=== PATIENT | male | born 1965 | race Two or more races ===

== ENCOUNTER 2021-03-29 06:48 | Inpatient (IN) | payer MEDICAID ==
[~2021-03-29] VITALS: Ht 152.4 cm; Wt 95.2 kg
[2021-03-29 07:33] LABS: BASOPHILS % (AUTO) 0.4 % (0.0-2.0); EOSINOPHILS % (AUTO) 0.3 % (1.0-6.0); HEMATOCRIT 48.1 % (41-53); HEMOGLOBIN 15.9 g/dL (13.5-17.5); LYMPHOCYTES # (AUTO) 1.5 K/uL (1.0-4.8); LYMPHOCYTES % (AUTO) 11.1 % (22.0-44.0); MEAN CORPUSCULAR HEMOGLOBIN 31.1 pg (26.0-34.0); MEAN CORPUSCULAR HGB CONC 33.1 G/dL (31.0-37.0); MEAN CORPUSCULAR VOLUME 94 fL (80-100); MONOCYTES # (AUTO) 1.2 K/uL (0.1-1.0); MONOCYTES % (AUTO) 8.7 % (2.0-9.0); NEUTROPHILS # (AUTO) 10.5 K/uL (1.8-7.7); NEUTROPHILS % (AUTO) 79.5 % (40.0-70.0); PLATELET COUNT (AUTO) 227 K/uL (150-450); RED BLOOD CELL COUNT(AUTO) 5.11 MIL/uL (4.50-5.90); RED CELL DISTRIBUTION WIDTH 13.8 % (11.5-14.5)
[2021-03-29 07:39] LABS: COVID AG,FIA SOURCE NASOPHARYNGEAL
[2021-03-29 07:52] LABS: ANION GAP 12 mmol/L (8-16); CALCIUM, TOTAL 9.3 mg/dL (8.8-10.5); CARBON DIOXIDE 27 mmol/L (22-29); CHLORIDE 100 mmol/L (98-107); CREATININE 1.12 mg/dL (0.60-1.30); GLOMERULAR FILTR. RATE CALC > 60 mL/min (>60); GLUCOSE,RANDOM 118 mg/dL (70-110); POTASSIUM 4.1 mmol/L (3.5-5.1); SODIUM SERUM 139 mmol/L (136-145); UREA NITROGEN, BLOOD 23 mg/dL (7-18)
[2021-03-29] MEDS ORDERED: ONDANSETRON HCL 4 MG/2 ML VIAL IVP PRN ×2 (10:00→12:45)
[2021-03-29] MEDS ORDERED: ASPIRIN 81 MG CHEWABLE TABLET PO ONE (10:00)
[2021-03-29] MEDS ORDERED: ACETAMINOPHEN 325 MG TABLET PO PRN ×2 (10:00→12:45)
[2021-03-29 10:53] VITALS: BP 149/87
[2021-03-29] MEDS ORDERED: ENALAPRILAT DIHYDRATE 1.25 MG/ML VIAL IVP PRN (12:45)
[2021-03-29] MEDS ORDERED: ALBUTEROL SULFATE 2.5 MG/0.5 ML NEB SOLUTION NEB PRN (12:45)
[2021-03-29] MEDS ORDERED: BISACODYL 10 MG RECTAL RECTAL SUPPOSITORY PR PRN (12:45)
[2021-03-29] MEDS ORDERED: DOCUSATE SODIUM 100 MG CAPSULE PO PRN (12:45)
[2021-03-29] MEDS ORDERED: IPRATROPIUM BROMIDE 0.5 MG/2.5 ML NEB SOLUTION NEB PRN (12:45)
[2021-03-29] MEDS ORDERED: 0.9% SODIUM CHLORIDE 10 ML SYRINGE IVP PRN (12:45)
[2021-03-29] MEDS ORDERED: MAGNESIUM HYDROXIDE SUSPENSION 30 ML UDCUP PO PRN (12:45)
[2021-03-29] MEDS: PANTOPRAZOLE SODIUM 40 MG DR TABLET PO SCH (13:04)
[2021-03-29 16:00] LABS: APPEARANCE,URINE CLOUDY (CLEAR); BILIRUBIN,URINE NEGATIVE (NEGATIVE); GLUCOSE, URINE (UA) NEGATIVE (NEGATIVE); KETONES,URINE 40 mg/dL (NEGATIVE); LEUKOCYTE ESTERASE ,URINE TRACE (NEGATIVE); NITRATE,URINE NEGATIVE (NEGATIVE); OCCULT BLOOD,URINE LARGE (NEGATIVE); PH,URINE 5.5 (5.0-8.0); PROTEIN,URINE NEGATIVE (NEGATIVE); UROBILINOGEN,URINE 0.2 mg/dL (<=1.0)
[2021-03-29 16:07] LABS: BACTERIA,URINE Few /HPF (None Seen)
[2021-03-29 16:08] LABS: SQUAMOUS EPITHELIAL CELL,UR Many /LPF (None Seen)
[2021-03-29 16:09] LABS: AMPHET/METH SCREEN,URINE NEGATIVE (NEGATIVE); BARBITURATE SCREEN, URINE NEGATIVE (NEGATIVE); BENZODIAZEPINES SCREEN,URINE NEGATIVE (NEGATIVE); CANNABINOID SCREEN,URINE NEGATIVE (NEGATIVE); COCAINE SCREEN,URINE NEGATIVE (NEGATIVE); METHADONE SCREEN, URINE NEGATIVE (NEGATIVE); OPIATE SCREEN,URINE NEGATIVE (NEGATIVE)
[2021-03-29 16:14] LABS: PHENCYCLIDINE SCREEN,URINE NEGATIVE (NEGATIVE)
[2021-03-29 19:45] VITALS: BP 148/84
[2021-03-29] MEDS: HYDROCODONE/ACETAMINOPHEN 5-325 MG TABLET PO PRN (19:59)
[2021-03-29 23:36] VITALS: BP 136/70
[2021-03-30 04:20] VITALS: BP 149/87
[2021-03-30 07:41] LABS: BASOPHILS % (AUTO) 0.4 % (0.0-2.0); EOSINOPHILS % (AUTO) 1.8 % (1.0-6.0); HEMATOCRIT 48.7 % (41-53); LYMPHOCYTES # (AUTO) 2.2 K/uL (1.0-4.8); LYMPHOCYTES % (AUTO) 22.9 % (22.0-44.0); MEAN CORPUSCULAR HEMOGLOBIN 31.3 pg (26.0-34.0); MEAN CORPUSCULAR HGB CONC 32.9 G/dL (31.0-37.0); MEAN CORPUSCULAR VOLUME 95 fL (80-100); MONOCYTES # (AUTO) 1.1 K/uL (0.1-1.0); MONOCYTES % (AUTO) 11.7 % (2.0-9.0); NEUTROPHILS # (AUTO) 6.1 K/uL (1.8-7.7); NEUTROPHILS % (AUTO) 63.2 % (40.0-70.0); PLATELET COUNT (AUTO) 217 K/uL (150-450); RED BLOOD CELL COUNT(AUTO) 5.12 MIL/uL (4.50-5.90); RED CELL DISTRIBUTION WIDTH 13.8 % (11.5-14.5)
[2021-03-30 07:55] VITALS: BP 148/77
[2021-03-30 08:02] LABS: ALANINE AMINOTRANSFERASE 36 U/L (12-78); ALBUMIN 3.8 g/dL (3.4-5.0); ALKALINE PHOSPHATASE 76 U/L (46-116); ANION GAP 9 mmol/L (8-16); ASPARTATE AMINOTRANSFERASE 24 U/L (15-37); BILIRUBIN,TOTAL 0.6 mg/dL (0.1-1.0); CALCIUM, TOTAL 8.8 mg/dL (8.8-10.5); CARBON DIOXIDE 29 mmol/L (22-29); CHLORIDE 103 mmol/L (98-107); CHOL/HDL RATIO 3.8 (4.2-7.3); CHOLESTEROL 186 mg/dL (131-200); CREATININE 0.89 mg/dL (0.60-1.30); FREE T4 (FREE THYROXINE) 1.22 ng/dL (0.76-1.46); GLOMERULAR FILTR. RATE CALC > 60 mL/min (>60); GLUCOSE,RANDOM 92 mg/dL (70-110); HDL CHOLESTEROL 49 mg/dL (40-60); HEMOGLOBIN A1C 6.2 % (3.8-5.6); LDL CHOL (CALC.) 120 mg/dL (0-130); POTASSIUM 3.9 mmol/L (3.5-5.1); SODIUM SERUM 141 mmol/L (136-145); THYROID STIMULATING HORMONE 2.29 uIU/mL (0.36-3.74); TOTAL PROTEIN, SERUM 7.1 g/dL (6.4-8.2); TRIGLYCERIDES 86 mg/dL (15-150); UREA NITROGEN, BLOOD 19 mg/dL (7-18)
[2021-03-30] MEDS: ASPIRIN 81 MG CHEWABLE TABLET PO SCH (09:42)
[2021-03-30] MEDS: PANTOPRAZOLE SODIUM 40 MG DR TABLET PO SCH (09:42)
[2021-03-30 11:21] VITALS: BP 140/86
[2021-03-30] MEDS ORDERED: ASPI81TA87 PO (12:59)
[2021-03-30] MEDS ORDERED: LOVA20TA73 PO (13:01)
[2021-03-30] MEDS: HYDROCODONE/ACETAMINOPHEN 5-325 MG TABLET PO PRN ×2 (14:22→20:29)
[2021-03-30 15:56] VITALS: BP 131/69
[2021-03-30 20:12] VITALS: BP 146/90
[2021-03-30] MEDS: DEXAMETHASONE 4 MG TABLET PO SCH (20:27)
[2021-03-30 23:45] VITALS: BP 151/94
[2021-03-31 05:22] VITALS: BP 134/88
[2021-03-31 07:30] LABS: BASOPHILS % (AUTO) 0.2 % (0.0-2.0); EOSINOPHILS % (AUTO) 0 % (1.0-6.0); HEMATOCRIT 47.9 % (41-53); HEMOGLOBIN 15.8 g/dL (13.5-17.5); LYMPHOCYTES # (AUTO) 0.9 K/uL (1.0-4.8); LYMPHOCYTES % (AUTO) 10.5 % (22.0-44.0); MEAN CORPUSCULAR HEMOGLOBIN 31.2 pg (26.0-34.0); MEAN CORPUSCULAR VOLUME 95 fL (80-100); MONOCYTES # (AUTO) 0.3 K/uL (0.1-1.0); MONOCYTES % (AUTO) 3.8 % (2.0-9.0); NEUTROPHILS # (AUTO) 7.7 K/uL (1.8-7.7); PLATELET COUNT (AUTO) 217 K/uL (150-450); RED BLOOD CELL COUNT(AUTO) 5.06 MIL/uL (4.50-5.90); RED CELL DISTRIBUTION WIDTH 13.5 % (11.5-14.5)
[2021-03-31 07:37] LABS: NEUTROPHILS % (AUTO) 85.5 % (40.0-70.0)
[2021-03-31 08:32] VITALS: BP 150/77
[2021-03-31 08:49] LABS: ALANINE AMINOTRANSFERASE 39 U/L (12-78); ALBUMIN 3.8 g/dL (3.4-5.0); ALKALINE PHOSPHATASE 72 U/L (46-116); ANION GAP 8 mmol/L (8-16); ASPARTATE AMINOTRANSFERASE 24 U/L (15-37); BILIRUBIN,TOTAL 0.5 mg/dL (0.1-1.0); CALCIUM, TOTAL 8.7 mg/dL (8.8-10.5); CARBON DIOXIDE 29 mmol/L (22-29); CHLORIDE 101 mmol/L (98-107); CHOL/HDL RATIO 3.8 (4.2-7.3); CHOLESTEROL 195 mg/dL (131-200); CREATININE 0.88 mg/dL (0.60-1.30); GLOMERULAR FILTR. RATE CALC > 60 mL/min (>60); GLUCOSE,RANDOM 128 mg/dL (70-110); HDL CHOLESTEROL 52 mg/dL (40-60); LDL CHOL (CALC.) 130 mg/dL (0-130); POTASSIUM 4.7 mmol/L (3.5-5.1); SODIUM SERUM 138 mmol/L (136-145); THYROID STIMULATING HORMONE 1.52 uIU/mL (0.36-3.74); TOTAL PROTEIN, SERUM 7.2 g/dL (6.4-8.2); TRIGLYCERIDES 64 mg/dL (15-150); UREA NITROGEN, BLOOD 18 mg/dL (7-18)
[2021-03-31] MEDS: DEXAMETHASONE 4 MG TABLET PO SCH ×2 (09:14→20:15)
[2021-03-31] MEDS: ASPIRIN 81 MG CHEWABLE TABLET PO SCH (09:14)
[2021-03-31] MEDS: PANTOPRAZOLE SODIUM 40 MG DR TABLET PO SCH (09:15)
[2021-03-31] MEDS ORDERED: LORazepam 2 MG/ML VIAL IVP ONE (11:30)
[2021-03-31 12:30] VITALS: BP 136/73
[2021-03-31 16:27] VITALS: BP 139/65
[2021-03-31] MEDS: HYDROCODONE/ACETAMINOPHEN 5-325 MG TABLET PO PRN (17:40)
[2021-03-31] MEDS ORDERED: METHYL SALICYLATE/MENTHOL 85 GM CREAM TP PRN (18:45)
[2021-03-31 19:43] VITALS: BP 152/88
[2021-03-31] MEDS ORDERED: ZOLPIDEM TARTRATE 5 MG TABLET PO PRN (21:45)
[2021-03-31 23:57] VITALS: BP 131/89
[2021-04-01 04:16] VITALS: BP 121/85
[2021-04-01 07:01] LABS: BASOPHILS % (AUTO) 0.1 % (0.0-2.0); EOSINOPHILS % (AUTO) 0 % (1.0-6.0); HEMOGLOBIN 15.4 g/dL (13.5-17.5); LYMPHOCYTES # (AUTO) 1.1 K/uL (1.0-4.8); LYMPHOCYTES % (AUTO) 10.2 % (22.0-44.0); MEAN CORPUSCULAR HGB CONC 32.7 G/dL (31.0-37.0); MEAN CORPUSCULAR VOLUME 95 fL (80-100); MONOCYTES # (AUTO) 1.1 K/uL (0.1-1.0); MONOCYTES % (AUTO) 9.6 % (2.0-9.0); NEUTROPHILS # (AUTO) 8.9 K/uL (1.8-7.7); NEUTROPHILS % (AUTO) 80.1 % (40.0-70.0); PLATELET COUNT (AUTO) 215 K/uL (150-450); RED BLOOD CELL COUNT(AUTO) 4.98 MIL/uL (4.50-5.90); RED CELL DISTRIBUTION WIDTH 13.9 % (11.5-14.5)
[2021-04-01 07:36] VITALS: BP 128/83
[2021-04-01 07:39] LABS: ALANINE AMINOTRANSFERASE 97 U/L (12-78); ALBUMIN 3.7 g/dL (3.4-5.0); ALKALINE PHOSPHATASE 69 U/L (46-116); ANION GAP 6 mmol/L (8-16); ASPARTATE AMINOTRANSFERASE 43 U/L (15-37); BILIRUBIN,TOTAL 0.6 mg/dL (0.1-1.0); CALCIUM, TOTAL 8.7 mg/dL (8.8-10.5); CARBON DIOXIDE 29 mmol/L (22-29); CHLORIDE 103 mmol/L (98-107); CREATININE 0.79 mg/dL (0.60-1.30); GLOMERULAR FILTR. RATE CALC > 60 mL/min (>60); GLUCOSE,RANDOM 127 mg/dL (70-110); POTASSIUM 4.5 mmol/L (3.5-5.1); SODIUM SERUM 138 mmol/L (136-145); TOTAL PROTEIN, SERUM 7.1 g/dL (6.4-8.2); UREA NITROGEN, BLOOD 18 mg/dL (7-18)
[2021-04-01] MEDS: DEXAMETHASONE 4 MG TABLET PO SCH ×2 (08:34→20:52)
[2021-04-01] MEDS: PANTOPRAZOLE SODIUM 40 MG DR TABLET PO SCH (08:34)
[2021-04-01] MEDS: ASPIRIN 81 MG CHEWABLE TABLET PO SCH (08:35)
[2021-04-01 11:11] VITALS: BP 146/81
[2021-04-01 15:12] VITALS: BP 138/78
[2021-04-01 19:50] VITALS: BP 139/56
[2021-04-02] VITALS (7 sets, daily range): BP systolic 112–147; BP diastolic 63–98
[2021-04-02 07:00] LABS: EOSINOPHILS % (AUTO) 0 % (1.0-6.0); LYMPHOCYTES # (AUTO) 1.3 K/uL (1.0-4.8); LYMPHOCYTES % (AUTO) 11.7 % (22.0-44.0); MEAN CORPUSCULAR HEMOGLOBIN 31.1 pg (26.0-34.0); MEAN CORPUSCULAR HGB CONC 32.6 G/dL (31.0-37.0); MEAN CORPUSCULAR VOLUME 95 fL (80-100); MONOCYTES # (AUTO) 0.8 K/uL (0.1-1.0); MONOCYTES % (AUTO) 7.6 % (2.0-9.0); NEUTROPHILS % (AUTO) 80.7 % (40.0-70.0); PLATELET COUNT (AUTO) 226 K/uL (150-450); RED BLOOD CELL COUNT(AUTO) 4.83 MIL/uL (4.50-5.90); RED CELL DISTRIBUTION WIDTH 13.5 % (11.5-14.5)
[2021-04-02] MEDS ORDERED: VANCOMYCIN HCL 1 GM/VIAL ONE (07:12)
[2021-04-02] MEDS ORDERED: BUPIVACAINE HCL/PF 0.5% 30 ML VIAL ONE (07:13)
[2021-04-02 07:15] LABS: ANION GAP 9 mmol/L (8-16); CALCIUM, TOTAL 8.8 mg/dL (8.8-10.5); CARBON DIOXIDE 28 mmol/L (22-29); CHLORIDE 102 mmol/L (98-107); CREATININE 0.88 mg/dL (0.60-1.30); GLOMERULAR FILTR. RATE CALC > 60 mL/min (>60); GLUCOSE,RANDOM 118 mg/dL (70-110); POTASSIUM 4.4 mmol/L (3.5-5.1); SODIUM SERUM 139 mmol/L (136-145); UREA NITROGEN, BLOOD 22 mg/dL (7-18)
[2021-04-02] MEDS ORDERED: BUPIVACAINE LIPOSOME/PF 1.3%-13.3MG/ML SUSPENSION 20 ML VIAL INJ ONE ×2 (07:15→07:45)
[2021-04-02] MEDS ORDERED: BUPIVACAINE LIPOSOME/PF 1.3%-13.3MG/ML SUSPENSION 10 ML VIAL INJ ONE (07:45)
[2021-04-02] MEDS ORDERED: FentaNYL CITRATE PF 100 MCG/2 ML VIAL IVP PRN (08:30)
[2021-04-02] MEDS ORDERED: HYDROmorphone 2 MG/ML VIAL IVP PRN (08:30)
[2021-04-02] MEDS ORDERED: MEPERIDINE-PF 25 MG/ML VIAL IVP PRN (08:30)
[2021-04-02 08:36] LABS: PROTHROMBIN TIME 11.1 SEC (9.4-11.6)
[2021-04-02] MEDS ORDERED: RINGERS SOLUTION,LACTATED 1,000 ML IV ONE ×2 (08:45→12:18)
[2021-04-02] MEDS: PANTOPRAZOLE SODIUM 40 MG DR TABLET PO SCH (09:00)
[2021-04-02] MEDS: ASPIRIN 81 MG CHEWABLE TABLET PO SCH (09:00)
[2021-04-02] MEDS: DEXAMETHASONE 4 MG TABLET PO SCH ×2 (09:00→20:08)
[2021-04-02 09:22] LABS: GLUCOMETER DEV NAME(LOC) SDS.; GLUCOSE,POINT OF CARE 106 MG/DL (70-110)
[2021-04-02] MEDS ORDERED: SODIUM CHLORIDE 0.9% 0 ML ONE (09:58)
[2021-04-02] MEDS ORDERED: BACITRACIN 50,000 UNITS/VIAL ONE (09:58)
[2021-04-02] MEDS ORDERED: ONDANSETRON HCL 4 MG/2 ML VIAL IVP PRN (12:45)
[2021-04-02] MEDS ORDERED: BACITRACIN 28 GM OINTMENT TP PRN (12:45)
[2021-04-02] MEDS ORDERED: OxyCODONE HCL/ACETAMINOPHEN 5-325 MG TABLET PO PRN (12:45)
[2021-04-02] MEDS ORDERED: MORPHINE SULFATE 4 MG/ML SYRINGE IVP PRN (12:45)
[2021-04-02] MEDS ORDERED: ZOLPIDEM TARTRATE 10 MG TABLET PO PRN (12:45)
[2021-04-02] MEDS ORDERED: MAG HYDROX/AL HYDROX/SIMETH 30 ML SUSP UDCUP PO PRN (12:45)
[2021-04-02] MEDS: ACETAMINOPHEN 1000 MG/ISO-OSM 100 ML IV SCH ×2 (14:31→20:08)
[2021-04-02] MEDS: POTASSIUM CHL 20 MEQ/D5-0.45NS 1,000 ML IV SCH (14:31)
[2021-04-02 14:49] LABS: BASOPHILS % (AUTO) 0.1 % (0.0-2.0); EOSINOPHILS % (AUTO) 0 % (1.0-6.0); HEMATOCRIT 43.3 % (41-53); HEMOGLOBIN 14.1 g/dL (13.5-17.5); LYMPHOCYTES # (AUTO) 1.1 K/uL (1.0-4.8); LYMPHOCYTES % (AUTO) 7.9 % (22.0-44.0); MEAN CORPUSCULAR HEMOGLOBIN 30.8 pg (26.0-34.0); MEAN CORPUSCULAR HGB CONC 32.5 G/dL (31.0-37.0); MEAN CORPUSCULAR VOLUME 95 fL (80-100); MONOCYTES # (AUTO) 0.8 K/uL (0.1-1.0); MONOCYTES % (AUTO) 5.4 % (2.0-9.0); NEUTROPHILS # (AUTO) 12.5 K/uL (1.8-7.7); PLATELET COUNT (AUTO) 219 K/uL (150-450); RED BLOOD CELL COUNT(AUTO) 4.58 MIL/uL (4.50-5.90); RED CELL DISTRIBUTION WIDTH 13.5 % (11.5-14.5)
[2021-04-02 14:53] LABS: NEUTROPHILS % (AUTO) 86.6 % (40.0-70.0)
[2021-04-02 15:10] LABS: ANION GAP 6 mmol/L (8-16); CALCIUM, TOTAL 8.5 mg/dL (8.8-10.5); CARBON DIOXIDE 29 mmol/L (22-29); CHLORIDE 103 mmol/L (98-107); CREATININE 0.93 mg/dL (0.60-1.30); GLOMERULAR FILTR. RATE CALC > 60 mL/min (>60); GLUCOSE,RANDOM 162 mg/dL (70-110); SODIUM SERUM 138 mmol/L (136-145); UREA NITROGEN, BLOOD 26 mg/dL (7-18)
[2021-04-02] MEDS ORDERED: DEXTROSE 5%-0.45% SODIUM CHL 1,000 ML IV ONE (17:30)
[2021-04-02] MEDS: CeFAZolin 1 GM/DEXTROSE 50 ML IV SCH (18:11)
[2021-04-02] MEDS: ENOXAPARIN SODIUM 40 MG/0.4 ML PF SYRINGE SQ SCH (20:08)
[2021-04-02] MEDS: DOCUSATE SODIUM 100 MG CAPSULE PO SCH (20:08)
[2021-04-03] VITALS (7 sets, daily range): BP systolic 112–127; BP diastolic 65–77
[2021-04-03] MEDS: ACETAMINOPHEN 1000 MG/ISO-OSM 100 ML IV SCH ×2 (01:32→08:06)
[2021-04-03] MEDS: CeFAZolin 1 GM/DEXTROSE 50 ML IV SCH (01:33)
[2021-04-03] MEDS: OXYGEN THERAPY IH SCH ×3 (01:34→20:00)
[2021-04-03] MEDS: POTASSIUM CHL 20 MEQ/D5-0.45NS 1,000 ML IV SCH (02:15)
[2021-04-03] MEDS ORDERED: KETAMINE HCL 50 MG/ML 10 ML VIAL IVP ONE (06:18)
[2021-04-03] MEDS ORDERED: DEXAMETHASONE SOD PHOS 4 MG/ML VIAL IVP ONE (06:18)
[2021-04-03] MEDS ORDERED: FentaNYL CITRATE PF 250 MCG/5 ML VIAL IVP ONE (06:18)
[2021-04-03] MEDS ORDERED: ONDANSETRON HCL 4 MG/2 ML VIAL IVP ONE (06:18)
[2021-04-03] MEDS ORDERED: 0.9% SODIUM CHLORIDE 10 ML VIAL IVP ONE (06:18)
[2021-04-03] MEDS ORDERED: LIDOCAINE/PF 2% 5 ML VIAL IM ONE (06:18)
[2021-04-03] MEDS ORDERED: SUCCINYLCHOLINE CHLORIDE 20 MG/ML 10 ML VIAL IVP ONE (06:18)
[2021-04-03] MEDS ORDERED: MIDAZOLAM HCL 2 MG/2 ML VIAL IVP ONE ×2 (06:18→06:27)
[2021-04-03] MEDS ORDERED: PROPOFOL 1% 20 ML VIAL IVP ONE (06:18)
[2021-04-03] MEDS: DOCUSATE SODIUM 100 MG CAPSULE PO SCH ×2 (08:37→20:36)
[2021-04-03] MEDS: ASPIRIN 81 MG CHEWABLE TABLET PO SCH (08:37)
[2021-04-03] MEDS: ENOXAPARIN SODIUM 40 MG/0.4 ML PF SYRINGE SQ SCH (08:37)
[2021-04-03] MEDS: PANTOPRAZOLE SODIUM 40 MG DR TABLET PO SCH (08:37)
[2021-04-03] MEDS: DEXAMETHASONE 4 MG TABLET PO SCH ×2 (08:37→20:36)
[2021-04-04 05:03] VITALS: BP 114/60
[2021-04-04 06:27] LABS: EOSINOPHILS % (AUTO) 0 % (1.0-6.0); HEMATOCRIT 37.1 % (41-53); LYMPHOCYTES # (AUTO) 2.1 K/uL (1.0-4.8); LYMPHOCYTES % (AUTO) 15.2 % (22.0-44.0); MEAN CORPUSCULAR HEMOGLOBIN 30.9 pg (26.0-34.0); MEAN CORPUSCULAR HGB CONC 32.3 G/dL (31.0-37.0); MEAN CORPUSCULAR VOLUME 96 fL (80-100); MONOCYTES # (AUTO) 1.8 K/uL (0.1-1.0); NEUTROPHILS % (AUTO) 71.8 % (40.0-70.0); PLATELET COUNT (AUTO) 184 K/uL (150-450); RED BLOOD CELL COUNT(AUTO) 3.88 MIL/uL (4.50-5.90); RED CELL DISTRIBUTION WIDTH 13.5 % (11.5-14.5)
[2021-04-04] MEDS: OXYGEN THERAPY IH SCH ×2 (08:00→20:00)
[2021-04-04 08:04] VITALS: BP 129/74
[2021-04-04] MEDS: ENOXAPARIN SODIUM 40 MG/0.4 ML PF SYRINGE SQ SCH (09:38)
[2021-04-04] MEDS: ASPIRIN 81 MG CHEWABLE TABLET PO SCH (09:38)
[2021-04-04] MEDS: DOCUSATE SODIUM 100 MG CAPSULE PO SCH ×2 (09:38→20:35)
[2021-04-04] MEDS: PANTOPRAZOLE SODIUM 40 MG DR TABLET PO SCH (09:38)
[2021-04-04] MEDS: DEXAMETHASONE 4 MG TABLET PO SCH ×2 (09:38→20:35)
[2021-04-04 19:30] VITALS: BP 125/70
[2021-04-04 23:00] VITALS: BP 118/60
[2021-04-05 04:00] VITALS: BP 147/74
[2021-04-05 07:30] VITALS: BP 149/83
[2021-04-05] MEDS: OXYGEN THERAPY IH SCH ×2 (08:00→20:00)
[2021-04-05] MEDS: ENOXAPARIN SODIUM 40 MG/0.4 ML PF SYRINGE SQ SCH (08:31)
[2021-04-05] MEDS: ASPIRIN 81 MG CHEWABLE TABLET PO SCH (08:31)
[2021-04-05] MEDS: DOCUSATE SODIUM 100 MG CAPSULE PO SCH ×3 (08:32→20:18)
[2021-04-05] MEDS: PANTOPRAZOLE SODIUM 40 MG DR TABLET PO SCH (08:32)
[2021-04-05] MEDS: DEXAMETHASONE 4 MG TABLET PO SCH ×2 (08:32→20:12)
[2021-04-05 11:32] VITALS: BP 135/90
[2021-04-05 15:30] VITALS: BP 124/74
[2021-04-05] MEDS: ACETAMINOPHEN 325 MG TABLET PO PRN (18:42)
[2021-04-05 20:15] VITALS: BP 113/64
[2021-04-05 23:25] VITALS: BP 111/57
[2021-04-06 04:30] VITALS: BP 118/53
[2021-04-06 08:00] VITALS: BP 123/63
[2021-04-06] MEDS: OXYGEN THERAPY IH SCH ×2 (08:00→20:00)
[2021-04-06] MEDS: DOCUSATE SODIUM 100 MG CAPSULE PO SCH ×2 (08:15→20:09)
[2021-04-06] MEDS: DEXAMETHASONE 4 MG TABLET PO SCH ×2 (08:15→20:09)
[2021-04-06] MEDS: ENOXAPARIN SODIUM 40 MG/0.4 ML PF SYRINGE SQ SCH (08:15)
[2021-04-06] MEDS: PANTOPRAZOLE SODIUM 40 MG DR TABLET PO SCH (08:15)
[2021-04-06] MEDS: ASPIRIN 81 MG CHEWABLE TABLET PO SCH (08:15)
[2021-04-06] MEDS: MULTIVITAMINS WITH MINERALS, THERAPEUTIC TABLET PO SCH (08:15)
[2021-04-06 15:17] VITALS: BP 114/69
[2021-04-06 19:51] VITALS: BP 101/57
[2021-04-07] VITALS: BP 131/74
[2021-04-07 04:38] VITALS: BP 129/67
[2021-04-07 07:49] VITALS: BP 138/52
[2021-04-07] MEDS: OXYGEN THERAPY IH SCH (08:00)
[2021-04-07] MEDS: DOCUSATE SODIUM 100 MG CAPSULE PO SCH ×3 (08:25→19:56)
[2021-04-07] MEDS: DEXAMETHASONE 4 MG TABLET PO SCH ×2 (08:25→19:56)
[2021-04-07] MEDS: ASPIRIN 81 MG CHEWABLE TABLET PO SCH (08:25)
[2021-04-07] MEDS: ENOXAPARIN SODIUM 40 MG/0.4 ML PF SYRINGE SQ SCH (08:25)
[2021-04-07] MEDS: MULTIVITAMINS WITH MINERALS, THERAPEUTIC TABLET PO SCH (08:26)
[2021-04-07] MEDS: PANTOPRAZOLE SODIUM 40 MG DR TABLET PO SCH (08:26)
[2021-04-07 15:02] VITALS: BP 123/66
[2021-04-07 19:50] VITALS: BP 121/66
[2021-04-07 22:12] VITALS: BP 134/74
[2021-04-08 04:38] VITALS: BP 140/71
[2021-04-08 08:00] VITALS: BP 119/69
[2021-04-08] MEDS: OXYGEN THERAPY IH SCH ×2 (08:00→20:15)
[2021-04-08] MEDS: DOCUSATE SODIUM 100 MG CAPSULE PO SCH ×2 (08:32→20:09)
[2021-04-08] MEDS: ASPIRIN 81 MG CHEWABLE TABLET PO SCH (08:32)
[2021-04-08] MEDS: ENOXAPARIN SODIUM 40 MG/0.4 ML PF SYRINGE SQ SCH (08:32)
[2021-04-08] MEDS: PANTOPRAZOLE SODIUM 40 MG DR TABLET PO SCH (08:32)
[2021-04-08] MEDS: MULTIVITAMINS WITH MINERALS, THERAPEUTIC TABLET PO SCH (08:32)
[2021-04-08] MEDS: DEXAMETHASONE 4 MG TABLET PO SCH ×2 (08:32→20:09)
[2021-04-08 16:41] VITALS: BP 123/68
[2021-04-08 20:31] VITALS: BP 118/69
[2021-04-09 00:11] VITALS: BP 121/78
[2021-04-09 04:59] VITALS: BP 142/81
[2021-04-09 07:50] VITALS: BP 136/79
[2021-04-09] MEDS: OXYGEN THERAPY IH SCH ×2 (08:00→20:17)
[2021-04-09] MEDS: DOCUSATE SODIUM 100 MG CAPSULE PO SCH ×2 (08:37→20:15)
[2021-04-09] MEDS: MULTIVITAMINS WITH MINERALS, THERAPEUTIC TABLET PO SCH (08:37)
[2021-04-09] MEDS: PANTOPRAZOLE SODIUM 40 MG DR TABLET PO SCH (08:38)
[2021-04-09] MEDS: ASPIRIN 81 MG CHEWABLE TABLET PO SCH (08:38)
[2021-04-09] MEDS: DEXAMETHASONE 4 MG TABLET PO SCH ×2 (08:38→20:15)
[2021-04-09] MEDS: ENOXAPARIN SODIUM 40 MG/0.4 ML PF SYRINGE SQ SCH (08:38)
[2021-04-09 15:10] VITALS: BP 105/60
[2021-04-09 19:41] VITALS: BP 136/76
[2021-04-09 23:31] VITALS: BP 132/73
[2021-04-10 05:14] VITALS: BP 148/94
[2021-04-10 06:20] LABS: EOSINOPHILS % (AUTO) 0 % (1.0-6.0); HEMATOCRIT 40.5 % (41-53); HEMOGLOBIN 13.1 g/dL (13.5-17.5); LYMPHOCYTES # (AUTO) 2.1 K/uL (1.0-4.8); LYMPHOCYTES % (AUTO) 12.2 % (22.0-44.0); MEAN CORPUSCULAR HGB CONC 32.3 G/dL (31.0-37.0); MEAN CORPUSCULAR VOLUME 96 fL (80-100); MONOCYTES # (AUTO) 1.9 K/uL (0.1-1.0); MONOCYTES % (AUTO) 10.6 % (2.0-9.0); NEUTROPHILS # (AUTO) 13.5 K/uL (1.8-7.7); NEUTROPHILS % (AUTO) 77.2 % (40.0-70.0); PLATELET COUNT (AUTO) 290 K/uL (150-450); RED BLOOD CELL COUNT(AUTO) 4.22 MIL/uL (4.50-5.90); RED CELL DISTRIBUTION WIDTH 13.5 % (11.5-14.5)
[2021-04-10 07:03] LABS: ALANINE AMINOTRANSFERASE 74 U/L (12-78); ALKALINE PHOSPHATASE 58 U/L (46-116); ANION GAP 7 mmol/L (8-16); ASPARTATE AMINOTRANSFERASE 14 U/L (15-37); BILIRUBIN,TOTAL 0.4 mg/dL (0.1-1.0); CALCIUM, TOTAL 8.6 mg/dL (8.8-10.5); CARBON DIOXIDE 28 mmol/L (22-29); CHLORIDE 103 mmol/L (98-107); CREATININE 0.72 mg/dL (0.60-1.30); GLOMERULAR FILTR. RATE CALC > 60 mL/min (>60); GLUCOSE,RANDOM 95 mg/dL (70-110); POTASSIUM 4.3 mmol/L (3.5-5.1); SODIUM SERUM 138 mmol/L (136-145); TOTAL PROTEIN, SERUM 6.3 g/dL (6.4-8.2); UREA NITROGEN, BLOOD 26 mg/dL (7-18)
[2021-04-10] MEDS: OXYGEN THERAPY IH SCH ×2 (08:00→20:00)
[2021-04-10] MEDS: PANTOPRAZOLE SODIUM 40 MG DR TABLET PO SCH (08:08)
[2021-04-10] MEDS: DOCUSATE SODIUM 100 MG CAPSULE PO SCH ×2 (08:08→20:03)
[2021-04-10] MEDS: ENOXAPARIN SODIUM 40 MG/0.4 ML PF SYRINGE SQ SCH (08:08)
[2021-04-10] MEDS: ASPIRIN 81 MG CHEWABLE TABLET PO SCH (08:09)
[2021-04-10] MEDS: DEXAMETHASONE 4 MG TABLET PO SCH ×2 (08:15→20:03)
[2021-04-10 08:19] VITALS: BP 130/69
[2021-04-10] MEDS: MULTIVITAMINS WITH MINERALS, THERAPEUTIC TABLET PO SCH (08:19)
[2021-04-10 16:27] VITALS: BP 153/93
[2021-04-10 20:56] VITALS: BP 136/85
[2021-04-10 23:57] VITALS: BP 137/85
[2021-04-11 05:22] VITALS: BP 116/70
[2021-04-11 07:58] VITALS: BP 130/84
[2021-04-11] MEDS: OXYGEN THERAPY IH SCH (08:00)
[2021-04-11] MEDS: DOCUSATE SODIUM 100 MG CAPSULE PO SCH ×2 (08:10→20:22)
[2021-04-11] MEDS: DEXAMETHASONE 4 MG TABLET PO SCH (08:10)
[2021-04-11] MEDS: MULTIVITAMINS WITH MINERALS, THERAPEUTIC TABLET PO SCH (08:11)
[2021-04-11] MEDS: ASPIRIN 81 MG CHEWABLE TABLET PO SCH (08:11)
[2021-04-11] MEDS: ENOXAPARIN SODIUM 40 MG/0.4 ML PF SYRINGE SQ SCH (08:11)
[2021-04-11] MEDS: PANTOPRAZOLE SODIUM 40 MG DR TABLET PO SCH (08:11)
[2021-04-11 08:30] LABS: EOSINOPHILS % (AUTO) 0.1 % (1.0-6.0); HEMATOCRIT 42.8 % (41-53); HEMOGLOBIN 13.9 g/dL (13.5-17.5); LYMPHOCYTES # (AUTO) 2.1 K/uL (1.0-4.8); LYMPHOCYTES % (AUTO) 10.3 % (22.0-44.0); MEAN CORPUSCULAR HEMOGLOBIN 31.3 pg (26.0-34.0); MEAN CORPUSCULAR HGB CONC 32.6 G/dL (31.0-37.0); MEAN CORPUSCULAR VOLUME 96 fL (80-100); MONOCYTES # (AUTO) 2.2 K/uL (0.1-1.0); NEUTROPHILS # (AUTO) 15.9 K/uL (1.8-7.7); NEUTROPHILS % (AUTO) 78.6 % (40.0-70.0); PLATELET COUNT (AUTO) 323 K/uL (150-450); RED BLOOD CELL COUNT(AUTO) 4.46 MIL/uL (4.50-5.90); RED CELL DISTRIBUTION WIDTH 14.3 % (11.5-14.5)
[2021-04-11 20:25] VITALS: BP 113/47
[2021-04-11 23:50] VITALS: BP 127/70
[2021-04-12 04:10] VITALS: BP 145/73
[2021-04-12 06:21] LABS: BASOPHILS % (AUTO) 0.1 % (0.0-2.0); EOSINOPHILS % (AUTO) 0.9 % (1.0-6.0); HEMATOCRIT 38.2 % (41-53); HEMOGLOBIN 12.3 g/dL (13.5-17.5); LYMPHOCYTES # (AUTO) 2.9 K/uL (1.0-4.8); MEAN CORPUSCULAR HEMOGLOBIN 30.9 pg (26.0-34.0); MEAN CORPUSCULAR HGB CONC 32.3 G/dL (31.0-37.0); MEAN CORPUSCULAR VOLUME 96 fL (80-100); MONOCYTES % (AUTO) 10.3 % (2.0-9.0); NEUTROPHILS # (AUTO) 14.1 K/uL (1.8-7.7); NEUTROPHILS % (AUTO) 73.7 % (40.0-70.0); PLATELET COUNT (AUTO) 269 K/uL (150-450); RED CELL DISTRIBUTION WIDTH 14.1 % (11.5-14.5)
[2021-04-12] MEDS: OXYGEN THERAPY IH SCH (08:00)
[2021-04-12 08:01] VITALS: BP 120/81
[2021-04-12] MEDS: DOCUSATE SODIUM 100 MG CAPSULE PO SCH ×2 (08:03→20:17)
[2021-04-12] MEDS: MULTIVITAMINS WITH MINERALS, THERAPEUTIC TABLET PO SCH (08:03)
[2021-04-12] MEDS: PANTOPRAZOLE SODIUM 40 MG DR TABLET PO SCH (08:03)
[2021-04-12] MEDS: ENOXAPARIN SODIUM 40 MG/0.4 ML PF SYRINGE SQ SCH (08:03)
[2021-04-12] MEDS: ASPIRIN 81 MG CHEWABLE TABLET PO SCH (08:03)
[2021-04-12 12:30] VITALS: BP 134/79
[2021-04-12 15:44] VITALS: BP 136/64
[2021-04-12 20:05] VITALS: BP 128/62
[2021-04-12] MEDS: ACETAMINOPHEN 325 MG TABLET PO PRN (22:20)
[2021-04-13 00:06] VITALS: BP 111/64
[2021-04-13 04:36] VITALS: BP 117/70
[2021-04-13 07:30] VITALS: BP 107/95
[2021-04-13] MEDS: PANTOPRAZOLE SODIUM 40 MG DR TABLET PO SCH (08:27)
[2021-04-13] MEDS: ENOXAPARIN SODIUM 40 MG/0.4 ML PF SYRINGE SQ SCH (08:27)
[2021-04-13] MEDS: ASPIRIN 81 MG CHEWABLE TABLET PO SCH (08:27)
[2021-04-13] MEDS: MULTIVITAMINS WITH MINERALS, THERAPEUTIC TABLET PO SCH (08:27)
[2021-04-13] MEDS: DOCUSATE SODIUM 100 MG CAPSULE PO SCH ×2 (08:27→20:20)
[2021-04-13 14:55] VITALS: BP 109/64
[2021-04-13 19:41] VITALS: BP 113/58
[2021-04-13 23:24] VITALS: BP 114/74
[2021-04-14 03:40] VITALS: BP 109/70
[2021-04-14 05:50] LABS: BASOPHILS % (AUTO) 0.2 % (0.0-2.0); HEMATOCRIT 36.1 % (41-53); HEMOGLOBIN 11.9 g/dL (13.5-17.5); LYMPHOCYTES # (AUTO) 1.7 K/uL (1.0-4.8); LYMPHOCYTES % (AUTO) 12.6 % (22.0-44.0); MEAN CORPUSCULAR HEMOGLOBIN 31.5 pg (26.0-34.0); MEAN CORPUSCULAR VOLUME 96 fL (80-100); MONOCYTES # (AUTO) 1.3 K/uL (0.1-1.0); MONOCYTES % (AUTO) 9.6 % (2.0-9.0); NEUTROPHILS # (AUTO) 10.3 K/uL (1.8-7.7); NEUTROPHILS % (AUTO) 75.6 % (40.0-70.0); PLATELET COUNT (AUTO) 234 K/uL (150-450); RED BLOOD CELL COUNT(AUTO) 3.78 MIL/uL (4.50-5.90)
[2021-04-14 06:57] LABS: ANION GAP 4 mmol/L (8-16); CALCIUM, TOTAL 8.4 mg/dL (8.8-10.5); CARBON DIOXIDE 30 mmol/L (22-29); CHLORIDE 104 mmol/L (98-107); GLOMERULAR FILTR. RATE CALC > 60 mL/min (>60); GLUCOSE,RANDOM 88 mg/dL (70-110); POTASSIUM 3.7 mmol/L (3.5-5.1); SODIUM SERUM 138 mmol/L (136-145); UREA NITROGEN, BLOOD 16 mg/dL (7-18)
[2021-04-14 07:31] VITALS: BP 114/66
[2021-04-14] MEDS: PANTOPRAZOLE SODIUM 40 MG DR TABLET PO SCH (08:09)
[2021-04-14] MEDS: MULTIVITAMINS WITH MINERALS, THERAPEUTIC TABLET PO SCH (08:09)
[2021-04-14] MEDS: ENOXAPARIN SODIUM 40 MG/0.4 ML PF SYRINGE SQ SCH (08:09)
[2021-04-14] MEDS: DOCUSATE SODIUM 100 MG CAPSULE PO SCH ×2 (08:09→21:21)
[2021-04-14] MEDS: ASPIRIN 81 MG CHEWABLE TABLET PO SCH (08:09)
[2021-04-14 16:00] VITALS: BP 136/77
[2021-04-14] MEDS: MUPIROCIN CALCIUM 2% 22 GM OINTMENT TP SCH ×2 (16:35→21:22)
[2021-04-14 19:35] VITALS: BP 119/71
[2021-04-14 23:57] VITALS: BP 100/54
[2021-04-15 02:38] VITALS: BP 122/75
[2021-04-15 07:47] VITALS: BP 116/77
[2021-04-15] MEDS: ENOXAPARIN SODIUM 40 MG/0.4 ML PF SYRINGE SQ SCH (08:13)
[2021-04-15] MEDS: MULTIVITAMINS WITH MINERALS, THERAPEUTIC TABLET PO SCH (08:13)
[2021-04-15] MEDS: ASPIRIN 81 MG CHEWABLE TABLET PO SCH (08:13)
[2021-04-15] MEDS: DOCUSATE SODIUM 100 MG CAPSULE PO SCH (08:13)
[2021-04-15] MEDS: PANTOPRAZOLE SODIUM 40 MG DR TABLET PO SCH (08:13)
[2021-04-15] MEDS: MUPIROCIN CALCIUM 2% 22 GM OINTMENT TP SCH (08:14)
[2021-04-15] MEDS ORDERED: ASPI81TA87 PO (10:46)
[2021-04-15] MEDS ORDERED: DOCU100C34 PO (10:48)
[2021-04-15] MEDS ORDERED: ENOX40DI9 SQ (10:49)
[2021-04-15] MEDS ORDERED: MULT-1239 PO (10:50)
[2021-04-15] MEDS ORDERED: MUPI1OIN5 TP (10:51)
[2021-04-15] MEDS ORDERED: PANT-31 PO (10:51)
[2021-04-15] MEDS ORDERED: ACET-784 PO (10:53)
[2021-04-15] MEDS ORDERED: AUD NEB (10:54)
[2021-04-15] MEDS ORDERED: BACI28OI28 TP (10:55)
[2021-04-15] MEDS ORDERED: BISA10SU11 PR (10:56)
[2021-04-15] MEDS ORDERED: MAAL30 PO (10:58)
[2021-04-15] MEDS ORDERED: MOM30 PO (10:59)
[2021-04-15] MEDS ORDERED: [UNRECOGNIZED DRUG - CODE] TP (11:05)
[2021-04-15] MEDS ORDERED: PERCT PO (11:07)
== END 2021-04-15 13:37 | DRG 26 ==
LOC: EMS 06:52 → 5S 10:15 → 4E 04-03 21:15 → 6N 04-04 15:00
PROVIDERS: ADMIT Internal Medicine; ATTEND Internal Medicine
PROC: 01N80ZZ Release Thoracic Nerve, Open Approach (ICD-10-PCS; 2021-04-02)
PROC: 01NB0ZZ Release Lumbar Nerve, Open Approach (ICD-10-PCS; principal; 2021-04-02 09:30)
DX: G83.4 Cauda equina syndrome (principal); M48.05 Spinal stenosis, thoracolumbar region; R65.10 Systemic inflammatory response syndrome (SIRS) of non-infectious origin without acute organ dysfunction; I11.9 Hypertensive heart disease without heart failure; Z20.822 Contact with and (suspected) exposure to COVID-19; F17.210 Nicotine dependence, cigarettes, uncomplicated; D72.829 Elevated white blood cell count, unspecified; R32 Unspecified urinary incontinence
CPT/HCPCS: 70450; 71045; 72148; 80048; 80053; 80061; 80307; 81001; 82607; 82962; 83036; 84132; 84145; 84439; 84443; 85025; 85610; 85730; 87086; 92610; 93005; 93306; 97110; 97112; 97116; 97163; 97166; 97168; 97530; 97535; 99285; A9575; C9290; G0238; G0378; J0131; J0330; J0690; J1030; J1100; J1650; J2250; J2405; J2704; J3010; J3370; J3480; J3490; J7050; J7120; J8540; 36415-L1; 36415-TC; Z7610